=== PATIENT | female | born 1955 | race Hispanic/Latino ===

== ENCOUNTER 2016-06-20 06:31 | Day surgery (SDC) | payer OTHER ==
[2016-06-20 07:01] VITALS: BMI 22.7
[2016-06-20] MEDS ORDERED: Propofol 10 mg/ml Inj (20 ML) ONE (08:40)
--- NOTE | 2016-06-20 08:40 | CP.SDSHP ---
Same Day Surgery H & P - History Proposed Procedure: EGD. Colonoscopy Pre-Op Diagnosis: abdominal pain. acid reflux. weight loss - Allergies Allergies: Allergies No Known Allergies Allergy (Verified 04/08/16 13:09) - Current Medications Current Medications: none - Physical Exam General Appearance: NAD Vital Signs: Vital Signs 06/20/16 07:01 Temperature 98.7 F Pulse Rate 59 L Respiratory 19 Rate Blood Pressure 140/90 O2 Sat by Pulse 98 Oximetry Mental Status: Alert & Oriented x3 Heart: WNL Lungs: WNL GI: WNL - {Optional Preform as Required} Abdomen: WNL - Impression Impression: 61 year old female here with abdominal pain, n/v and acid reflux with weight loss for EGD/colonoscopy Pt. Evaluated Today:Candidate for Anesthesia & Procedure: Yes - Date & Time Date: 06/20/16 Time: 08:40 Short Stay Discharge - Short Stay Discharge Admitting Diagnosis/Reason for Visit: WEIGHT LOSS / ACID REFLUX Disposition: HOME/ ROUTINE
[2016-06-20 09:27] VITALS: TEMP 97.8
[2016-06-20 09:52] VITALS: RESP 14
[2016-06-20 10:12] VITALS: BP 145/84; PULSE 62; O2SAT 99
== END 2016-06-20 12:12 | disposition home or self-care (01) ==
LOC: C.ENDO 06:31
PROVIDERS: ATTEND Internal Medicine Gastroenterology
DX: D12.5 Benign neoplasm of sigmoid colon (principal); K64.8 Other hemorrhoids; K57.30 Diverticulosis of large intestine without perforation or abscess without bleeding; K21.9 Gastro-esophageal reflux disease without esophagitis; K29.70 Gastritis, unspecified, without bleeding; K29.80 Duodenitis without bleeding
CPT/HCPCS: 43239; 45380; 88305; J2001; J2704; J3010

== ENCOUNTER 2018-04-16 12:11 | Emergency (ER) | payer MEDICAID ==
[2018-04-16 12:11] VITALS: BMI 25.5
[2018-04-16 12:25] VITALS: TEMP 97.9
--- NOTE | 2018-04-16 16:09 | C.PDOC ---
History Of Present Illness 63 y/o female,w/PMhx of HTN, presents to the ER complaining of lightheadedness which occurred today. Patient states that her vision went " black" for several seconds while she was traveling on a bus. Patient reports that she did not have full LOC. She notes that she ran out of her Lisinopril 10 mg 1 month ago. Denies having fever, chills, CP, SOB, palpitations, facial droop, slurred speech, extremity weakness, and sensory changes. Time Seen by Provider: 04/16/18 16:08 Chief Complaint (Nursing): Dizziness/Lightheaded History Per: Patient History/Exam Limitations: no limitations Onset/Duration Of Symptoms: Hrs Current Symptoms Are (Timing): Gone Past Medical History Reviewed: Historical Data, Nursing Documentation, Vital Signs Vital Signs: Last Vital Signs Temp 97.9 F 04/16/18 12:22 Pulse 68 04/16/18 12:22 Resp 20 04/16/18 12:22 BP 143/92 H 04/16/18 12:22 Pulse Ox 97 04/16/18 12:22 - Medical History PMH: Asthma, Diabetes (type 2), Gastritis Denies: Chronic Kidney Disease Other Surgeries: Hx of surgeries Family History: States: No Known Family Hx - Social History Hx Tobacco Use: No Hx Alcohol Use: No Hx Substance Use: No - Immunization History Hx Tetanus Toxoid Vaccination: No Hx Influenza Vaccination: Yes Hx Pneumococcal Vaccination: Yes Review Of Systems Except As Marked, All Systems Reviewed And Found Negative. Constitutional: Negative for: Fever, Chills Cardiovascular: Negative for: Chest Pain, Palpitations Respiratory: Negative for: Shortness of Breath Neurological: Positive for: Dizziness. Negative for: Weakness, Numbness, Headache Physical Exam - Physical Exam Appears: Non-toxic, No Acute Distress Skin: Normal Color, Warm, Dry Head: Atraumatic, Normacephalic Eye(s): bilateral: Normal Inspection, PERRL Nose: Normal Oral Mucosa: Moist Neck: Supple Chest: Symmetrical Cardiovascular: Rhythm Regular Respiratory: Normal Breath Sounds, No Rales, No Rhonchi, No Wheezing Gastrointestinal/Abdominal: Soft, No Tenderness, No Guarding, No Rebound Extremity: Normal ROM Neurological/Psych: Oriented x3, Normal Speech, Normal Motor, Normal Sensation ED Course And Treatment - Laboratory Results Result Diagrams: 04/16/18 17:44 04/16/18 17:44 O2 Sat by Pulse Oximetry: 97 (RA) Pulse Ox Interpretation: Normal - CT Scan/US CT FACIAL BONES Other Rad Studies (CT/US): Read By Radiologist, Radiology Report Reviewed CT/US Interpretation: Accession No. : [id number]. Patient Name / ID : PHOEEB CHOI / [id number]. Exam Date : 04/16/2018 17:46:36 ( Approved ). Study Comment : Sex / Age : F / 83Y. Creator : Justine Aviles. Dictator : Maria Victoria Jara MD. Nurse Epidemiologist : Certified Medical Technician : Maria Victoria Jara MD. Approver2 : Report Date : 04/16/2018 17:58:34. My Comment : . Date of service: 04/16/2018. CT maxillofacial bones without IV contrast. Indication: facial injury, r/o fx after fall. Comparison: None available. Technique: Axial computed tomography images were obtained of the maxillofacial bones without the use of intravenous contrast. Coronal and sagittal reformatted images were generated and reviewed. This CT exam was performed using 1 or more of the following dose reduction techniques: Automated exposure control, adjustment of the MAA and/or kV according to patient size, and/or use of iterative reconstruction technique. Radiation dose: Total exam DLP = 718.43 mGy-cm. Findings: Streak artifact from dental hardware. Probable nondisplaced right nasal bone fracture deformity with associated soft tissue swelling. The remainder of the visualized facial bones appear unremarkable without acute displaced fracture. The orbits appear unremarkable. The temporomandibular joints appear located. The mastoid air cells appear clear. The paranasal sinuses appear clear. The visualized brain appears unremarkable. The soft tissues appear unremarkable. Impression: Probable nondisplaced right nasal bone fracture deformity with associated soft tissue swelling. CT HEAD Other Rad Studies (CT/US): Read By Radiologist, Radiology Report Reviewed CT/US Interpretation: Accession No. : [id number]. Patient Name / ID : PHOEBE CHOI / [id number]. Exam Date : 04/16/2018 17:43:44 ( Approved ). Study Comment : Sex / Age : F / 83Y. Creator : Justine Aviles. Dictator : Maria Victoria Jara MD. Nurse Epidemiologist : Certified Medical Technician : Maria Victoria Jara MD. Approver2 : Report Date : 04/16/2018 17:57:56. My Comment : . Date of service: 04/16/2018. PROCEDURE: CT HEAD WITHOUT CONTRAST. HISTORY: head injury, on ASA. COMPARISON: None available. TECHNIQUE: Axial computed tomography images were obtained through the head/brain without intravenous contrast. Radiation dose: Total exam DLP = 1014.46 mGy-cm. This CT exam was performed using one or more of the following dose reduction techniques: Automated exposure control, adjustment of the mA and/or kV according to patient size, and/or use of iterative reconstruction technique. FINDINGS: HEMORRHAGE: No intracranial hemorrhage. BRAIN: Diffuse atrophy with prominence of the ventricles and sulci noted. No mass effect or edema. Intracranial atherosclerosis. Scattered periventricular and subcortical white matter hypodensities, which are nonspecific, but often seen with chronic microvascular ischemic disease. Please note that MRI with diffusion imaging is more sensitive in the detection of acute ischemic event. VENTRICLES: No hydrocephalus. CALVARIUM: Unremarkable. PARANASAL SINUSES: Unremarkable as visualized. No significant inflammatory changes. MASTOID AIR CELLS: Unremarkable as visualized. No inflammatory changes. OTHER FINDINGS: None. IMPRESSION: No acute intracranial pathology identified. Findings as above. Progress Note: Labs, ECG, and CT-Head ordered. Disposition Counseled Patient/Family Regarding: Studies Performed, Diagnosis, Need For Followup, Rx Given - Disposition Referrals: [facility] [Outside] Disposition: HOME/ ROUTINE Disposition Time: 18:50 Condition: STABLE Additional Instructions: FOLLOW UP IN THE MEDICAL CLINIC IN 1-2 DAYS USE LISINOPRIL DAILY RETURN TO ER IF SYMPTOMS WORSEN Prescriptions: Lisinopril [Zestril] 10 mg PO DAILY #30 tablet Instructions: Near Fainting (DC) Forms: QRGL (Mongolian) Print Language: KOREAN - Clinical Impression Clinical Impression: Near syncope - Scribe Statement The provider has reviewed the documentation as recorded by the Lara Cedillo Provider Attestation: All medical record entries made by the Lara were at my direction and personally dictated by me. I have reviewed the chart and agree that the record accurately reflects my personal performance of the history, physical exam, medical decision making, and the department course for this patient. I have also personally directed, reviewed, and agree with the discharge instructions and disposition.
--- NOTE | 2018-04-16 17:04 | CT ---
Date of service: 04/16/2018 PROCEDURE: CT HEAD WITHOUT CONTRAST. HISTORY: dizziness, near syncope COMPARISON: None available. TECHNIQUE: Axial computed tomography images were obtained through the head/brain without intravenous contrast. Radiation dose: Total exam DLP = 1193.58 mGy-cm. This CT exam was performed using one or more of the following dose reduction techniques: Automated exposure control, adjustment of the mA and/or kV according to patient size, and/or use of iterative reconstruction technique. FINDINGS: HEMORRHAGE: No intracranial hemorrhage. BRAIN: Diffuse atrophy with prominence of the ventricles and sulci noted. No mass effect or edema. Scattered periventricular and subcortical white matter hypodensities, which are nonspecific, but often seen with chronic microvascular ischemic disease. Please note that MRI with diffusion imaging is more sensitive in the detection of acute ischemic event. VENTRICLES: No hydrocephalus. CALVARIUM: Unremarkable. PARANASAL SINUSES: Fluid within the right maxillary sinus. The remainder the visualized paranasal sinuses appear clear. MASTOID AIR CELLS: Unremarkable as visualized. No inflammatory changes. OTHER FINDINGS: None. IMPRESSION: No acute intracranial pathology identified. Fluid within the right maxillary sinus; correlate clinically for sinusitis. Additional incidental findings as above.
[2018-04-16 17:50] LABS: BASO # 0.1 K/uL (0.0-0.2); BASO % 1.2 % (0.0-2.0); EOS # 0.5 K/uL (0.0-0.7); EOS % 9.1 % (0.0-4.0); HEMOGLOBIN 13.9 g/dL (11.0-16.0); LYMPH # 1.9 K/uL (1.0-4.3); LYMPH % 33.5 % (20.0-40.0); MEAN CELL VOLUME 86.2 fL (81.0-99.0); MEAN CORPUSCULAR HEMOGLOBIN 28.7 pg (27.0-31.0); MEAN CORPUSCULAR HGB CONC 33.3 g/dL (33.0-37.0); MEAN PLATELET VOLUME 7.9 fL (7.2-11.7); MONO # 0.7 K/uL (0.0-0.8); MONO % 12.3 % (0.0-10.0); NEUT # 2.5 K/uL (1.8-7.0); NEUT % 43.9 % (50.0-75.0); NRBC % 0.1 % (0.0-2.0); RBC 4.85 Mil/uL (3.80-5.20); RED CELL DISTRIBUTION WIDTH 14.1 % (11.5-14.5); WHITE BLOOD COUNT 5.8 K/uL (4.8-10.8)
[2018-04-16 18:11] LABS: ALB/GLOB RATIO 1.7 (1.0-2.1); ALBUMIN 4.6 g/dL (3.5-5.0); ALT/SGPT 25 U/L (9-52); AST/SGOT 33 U/L (14-36); BLOOD UREA NITROGEN 18 mg/dL (7-17); GFR NON-AFRICAN AMERICAN > 60
[2018-04-16 18:56] VITALS: BP 148/94; PULSE 73; RESP 16; O2SAT 96
--- NOTE | 2018-04-17 20:31 | CARD ---
APPROVED REPORT Date of service: 04/16/2018 EKG Measurement Heart [id number] IN [id number] <Conclusion> Normal sinus rhythm Possible Left atrial enlargement Left ventricular hypertrophy with QRS widening and repolarization abnormality Abnormal ECG
== END 2018-04-16 18:57 | disposition home or self-care (01) ==
LOC: C.ER 12:11
DX: R55 Syncope and collapse (principal)